=== PATIENT | male | born 1935 | race Caucasian/White ===

== ENCOUNTER 2017-06-12 08:14 | Day surgery (SDC) | payer MEDICARE ==
[~2017-06-12] VITALS: Ht 175.3 cm; Wt 94.1 kg
[2017-06-12] MEDS ORDERED: GELATIN 12 MM/7 MM FOAM ONE (08:15)
[2017-06-12] MEDS ORDERED: GLIP1TAB49 PO (08:39)
[2017-06-12] MEDS ORDERED: GLIP5TAB8 PO (08:39)
[2017-06-12 08:43] VITALS: BP 130/77; PULSE 88; RESP 20; TEMP 97.8; O2SAT 98
[2017-06-12] MEDS ORDERED: FLUT1INH INH (08:48)
[2017-06-12] MEDS ORDERED: MAGN400T2 PO (08:48)
[2017-06-12] MEDS ORDERED: VITACAP7 PO (08:48)
[2017-06-12] MEDS ORDERED: ASPI-147 PO (08:48)
[2017-06-12] MEDS ORDERED: AMLO10TA2 PO (08:48)
[2017-06-12] MEDS ORDERED: METO50TA PO (08:48)
[2017-06-12] MEDS ORDERED: OXYB10TA PO (08:48)
[2017-06-12] MEDS ORDERED: METF500T PO (08:48)
[2017-06-12] MEDS ORDERED: XARE20TA PO (08:48)
[2017-06-12] MEDS ORDERED: TAMS0.4C4 PO (08:48)
[2017-06-12] MEDS ORDERED: LOSA50TA PO (08:48)
[2017-06-12] MEDS ORDERED: SIMV20TA PO (08:48)
[2017-06-12] MEDS ORDERED: FURO20TA PO (08:48)
[2017-06-12] MEDS ORDERED: FINA5TAB2 PO (08:48)
[2017-06-12 09:30] LABS: AUTOMATED NEUTROPHIL # 4.6 TH/MM3 (1.8-7.7); BASOPHIL % 0.6 % (0.0-2.0); EOSINOPHIL # 0.2 TH/MM3 (0-0.4); EOSINOPHIL % 2.9 % (0.0-4.0); HEMATOCRIT 41.3 % (39.0-51.0); HEMO FLAGS DIFF FINAL; LYMPH % 9.1 % (9.0-44.0); LYMPHOCYTE # 0.5 TH/MM3 (1.0-4.8); MEAN CELL VOLUME 88.2 FL (80.0-100.0); MEAN CORPUSCULAR HEMOGLOBIN 28.9 PG (27.0-34.0); MEAN CORPUSCULAR HGB CONC 32.8 % (32.0-36.0); MONO % 10.6 % (0.0-8.0); NEUT % 76.8 % (16.0-70.0); PLATELET COUNT 248 TH/MM3 (150-450); RED BLOOD COUNT 4.69 MIL/MM3 (4.50-5.90); RED CELL DISTRIBUTION WIDTH 16.1 % (11.6-17.2)
[2017-06-12] MEDS ORDERED: SODIUM CHLOR 0.9% 1000 ML INJ 1,000 ML IV SCH (09:30)
[2017-06-12 09:38] LABS: APTT (PATIENT) 25.9 SEC (24.3-30.1); PROTHROMBIN TIME - PATIENT 10.7 SEC (9.8-11.6)
[2017-06-12] MEDS ORDERED: LIDOCAINE HCL 1% 20 ML VIAL ONE (09:41)
[2017-06-12] MEDS ORDERED: MIDAZOLAM HCL 2 MG/2 ML VIAL ONE (10:16)
[2017-06-12] MEDS ORDERED: THROMBIN (TOPICAL) 5,000 UNIT VIAL ONE (10:45)
--- NOTE | 2017-06-12 10:54 | PD.RAD ---
Post CT Procedure Prog Note Pre Procedure Diagnosis: (1) Metastatic disease Post Procedure Diagnosis: (1) Metastatic disease Procedure Date: Jun 12, 2017 Supervising Radiologist: Porfirio Zavala JR Anesthesia: Conscious Sedation Plan of Activity Patient to Unit: ROPU Patient Condition: Good See PACS Report for procedural detail/treatment Biopsy Imaging Guidance: CT Side: Right Biopsy Procedure: Adrenal Gland Specimen: Core Biopsy Findings: 2 core samples of right adrenal gland mass. Thrombin/gelfoam utilized. No significant bleeding on post bx CT images. Jr. Lucas,Porfirio Lambert MD Jun 12, 2017 10:54
[2017-06-12 11:00] VITALS: BP 107/57; PULSE 68; RESP 16; TEMP 97.8; O2SAT 92
[2017-06-12 11:15] VITALS: BP 111/60; PULSE 67; RESP 16; O2SAT 92
--- NOTE | 2017-06-12 11:24 | RADRPT ---
EXAM DATE/TIME: 06/12/2017 10:20 [place] COMPARISON: No previous studies available for comparison. INDICATIONS : Right adrenal mass SEDATION TIME: 15 minutes BIOPSY SITE: Right adrenal MEDICATION(S): 1.) 2 mg midazolam (Versed) IV 2.) 100 mcg fentanyl (Sublimaze) IV DEVICE(S): 1.) 19 gauge introducer 2.) 20 gauge Temno core biopsy needle MEDICAL HISTORY : Diabetes mellitus type 2. Hypertension. Cardiovascular disease. Melanoma SURGICAL HISTORY : Pacemaker. ENCOUNTER: Initial ACUITY: 1 day PAIN SCORE: 0/10 LOCATION: Right abdomen A total of two core specimen(s) were obtained and sent to the laboratory for pathologic evaluation. PROCEDURE: 1. CT guided adrenal right biopsy. Prior to the procedure informed consent was obtained. Any appropriate prior imaging studies were rev iewed. Using automated exposure control and adjustment of the mA and/or kV according to patient size, radiat ion dose was kept as low as reasonably achievable to obtain optimal diagnostic quality images. DICOM format image data is available electronically for review and comparison. The site was prepped in a sterile fashion. Full sterile technique was used, including cap, mask, vj rile gloves and gown and a large sterile sheet. Hand hygiene and 2% chlorhexidine and/or betadine/al cohol prep was utilized per protocol for cutaneous antisepsis. The skin and subcutaneous tissues wer e infiltrated with local anesthetic solution. With CT guidance the right adrenal gland mass was localized. Biopsy was performed using the prescribe d needle as above. Thrombin and Gelfoam was utilized to aid in hemostasis. Adequate hemostasis was o btained with compression at the puncture site. Follow-up CT scan reveals no hemorrhage or pneumothorax. The patient tolerated the procedure well and there were no complications. The patient was returned to the Radiology Outpatient Unit in stable condition. CONCLUSION: Uncomplicated CT guided biopsy of the right adrenal gland mass. Porfirio Zavala Jr., MD on June 12, 2017 at 11:21 Board Certified Radiologist. This report was verified electronically.
[2017-06-12 11:45] VITALS: BP 126/80; PULSE 87; RESP 16; O2SAT 92
[2017-06-12 12:15] VITALS: BP 119/65; PULSE 70; RESP 16; O2SAT 92
[2017-06-12 12:45] VITALS: BP 114/63; PULSE 70; RESP 16; O2SAT 94
== END 2017-06-12 13:45 | disposition home or self-care (01) ==
LOC: HRAD 08:14 → HRIP 08:17 → HRAD 13:45
PROVIDERS: ATTEND Internal Medicine
DX: C79.71 Secondary malignant neoplasm of right adrenal gland (principal); E11.9 Type 2 diabetes mellitus without complications; I48.91 Unspecified atrial fibrillation; I10 Essential (primary) hypertension; N40.0 Benign prostatic hyperplasia without lower urinary tract symptoms; I25.10 Atherosclerotic heart disease of native coronary artery without angina pectoris; Z85.820 Personal history of malignant melanoma of skin; Z95.0 Presence of cardiac pacemaker
CPT/HCPCS: 60699; 77012; 85025; 85610; 85730; 88305; 88341; 88342; 99152; J2250; J3010; J7030; 81210